=== PATIENT | male | born 1955 | race Caucasian/White ===

== ENCOUNTER 2016-02-20 15:04 | Outpatient (CLI) | payer BC ==
--- NOTE | 2016-02-21 07:14 | MRI ---
RIGHT KNEE MRI WITHOUT IV CONTRAST 02/20/16 HISTORY: 60-year-old male with right knee pain and osteoarthritis. Multiplanar and multisequence MRI examination of the right knee is performed. FINDINGS: There is evidence of suprapatellar joint recess fluid and diffusion. There is irregular cartilage lo ss of all three compartments including the central patellar facet with some subchondral cystic mills es and marked irregular cartilage loss of the medial compartment, somewhat greater than the lateral compartment. Extensive complex tear of the medial meniscus extending from the posterior horn into t he body of the meniscus with a large displaced meniscal flap extending deep to the MCL. The lateral meniscus appears unremarkable. Anterior and posterior cruciate ligaments and collateral ligament com plexes and quadriceps and patellar tendons appear within normal limits. There is significant irregul ar cartilage loss of the medial femoral condyle cartilage. Multiple intra-articular bodies are noted posterior to the posterior root of the medial meniscus up to 0.7 cm in size. No acute osteochondral defect. IMPRESSION: Somewhat complex tear of the medial meniscus extending from the posterior horn into the body with pr ominent superiorly displaced meniscal flap at the level of the body of the meniscus. Multiple intra- articular bodies in a posterior popliteal synovial cyst up to 0.7 cm. Severe tricompartment arthrosi s and marked irregular cartilage loss most marked involving the medial compartment. Evidence for sup rapatellar joint effusion. POS: OFF
== END 2016-02-20 15:05 | disposition home or self-care (01) ==
LOC: BURMRI 15:04
PROVIDERS: ATTEND Family Medicine
DX: M25.561 Pain in right knee (principal); M19.90 Unspecified osteoarthritis, unspecified site; M17.12 Unilateral primary osteoarthritis, left knee

== ENCOUNTER 2018-02-10 12:36 | Outpatient (CLI) | payer BC ==
--- NOTE | 2018-02-10 13:30 | RAD ---
CHEST TWO VIEWS: History: Z01.18 Pre op radiograph. Comparison: 2016 FINDINGS: Large volume hiatal hernia, similar. Mild left basilar atelectasis. No pneumothorax or effusion. No a cute osseous abnormality. IMPRESSION: No acute intrathoracic abnormality. POS: VERONICA
[2018-02-10 18:45] LABS: #Basophils 0.1 thou/uL (0.0-0.2); #Eosinphils 0.3 thou/uL (0.0-0.7); #Lymphocytes 2.2 thou/uL (1.20-3.40); #Monocytes 0.6 thou/uL (0.11-0.59); #Neutrophils 2.9 thou/uL (1.40-6.50); %Basophils 1.1 % (0.0-1.0); %Eosinophils 4.5 % (0.0-10.0); %Lymphocytes 36.7 % (21.0-51.0); %Monocytes 9.4 % (0.0-10.0); %Neutrophils 48.4 % (42.0-75.0); Hemoglobin 16.3 g/dL (14.0-18.0); Mean Corpuscular HGB CONC 32.6 g/dL (32.0-36.0); Mean Corpuscular Hemoglobin 28.6 pg (27.0-31.0); Mean Platelet Volume 7.9 fL (7.4-10.4); Platelet Count 248 thou/uL (130-400); RBC Distribution Width 13.5 % (11.5-14.5); Red Blood Cell (RBC) Count 5.71 mill/uL (4.70-6.10); White Blood Cell (WBC) Count 6.1 thou/uL (4.8-10.8)
[2018-02-10 21:03] LABS: Thyroid Stimulating Hormone 1.3124 uIU/mL (0.35-4.94)
[2018-02-10 21:41] LABS: ALT (SGPT) 24 U/L (8-55); AST (SGOT) 18 U/L (5-34); Albumin 4.4 g/dL (3.4-4.8); Alkaline Phosphatase 82 U/L (40-150); Anion Gap 15 mmol/L (10-20); BUN (Urea Nitrogen) 14 mg/dL (8.4-25.7); Bilirubin, Total 0.6 mg/dL (0.2-1.2); Calc. Creatinine Clearance 0 mL/min (70-130); Calcium 9.5 mg/dL (7.8-10.44); Carbon Dioxide 26 mmol/L (23-31); Chloride 102 mmol/L (98-107); Estimated GFR-MDRD 77; Globulin 3.1 g/dL (2.4-3.5); Glucose 86 mg/dL (80-115); Potassium 4.4 mmol/L (3.5-5.1); Protein, Total 7.5 g/dL (5.8-8.1); Sodium 139 mmol/L (136-145); Transferrin, Serum 352 mg/dL (163-344)
[2018-02-10 23:41] LABS: Hep C IgG Ab Non-Reactive (NonReactive); Hep C Index 0.14 S/CO (0-0.79)
== END 2018-02-10 12:37 | disposition home or self-care (01) ==
LOC: BUREKG 12:36
PROVIDERS: ATTEND Family Medicine
DX: Z01.818 Encounter for other preprocedural examination (principal)
CPT/HCPCS: 36415; 71046; 80053; 83036; 84443; 84466; 85025; 86803

== ENCOUNTER 2023-06-30 12:03 | Emergency (ER) | payer MEDICARE ==
[~2023-06-30 12:03] MED LIST: Iopamidol 370 76% 100 ML VIAL ONE
[2023-06-30 12:26] LABS: #Basophils 0.1 thou/uL (0.0-0.2); #Eosinphils 0.3 thou/uL (0.0-0.7); #Lymphocytes 3.2 thou/uL (1.20-3.40); #Monocytes 0.6 thou/uL (0.11-0.59); #Neutrophils 5.8 thou/uL (1.40-6.50); %Basophils 0.9 % (0.0-1.0); %Eosinophils 2.7 % (0.0-10.0); %Monocytes 6.3 % (0.0-10.0); Hematocrit 52.3 % (42.0-52.0); Mean Corpuscular HGB CONC 32.5 g/dL (32.0-36.0); Mean Corpuscular Hemoglobin 29.9 pg (27.0-31.0); Mean Corpuscular Volume 91.8 fl (78.0-98.0); Mean Platelet Volume 7.5 fL (7.4-10.4); Platelet Count 243 10x3/uL (130-400); RBC Distribution Width 12.9 % (11.5-14.5); Red Blood Cell (RBC) Count 5.69 mill/uL (4.70-6.10); White Blood Cell (WBC) Count 9.9 10x3/uL (4.8-10.8)
[2023-06-30 12:44] LABS: ALT (SGPT) 34 U/L (8-55); AST (SGOT) 24 U/L (5-34); Albumin 4.5 g/dL (3.4-4.8); Alkaline Phosphatase 74 U/L (40-110); Anion Gap 18 mmol/L (10-20); BUN (Urea Nitrogen) 27 mg/dL (8.4-25.7); Bilirubin, Total 0.8 mg/dL (0.2-1.2); Calc. Creatinine Clearance 0 mL/min (70-130); Calcium 9.6 mg/dL (7.8-10.44); Carbon Dioxide 25 mmol/L (23-31); Chloride 102 mmol/L (98-107); Estimated GFR 50; Globulin 3.1 g/dL (2.4-3.5); Glucose 153 mg/dL (80-115); Potassium 4.3 mmol/L (3.5-5.1); Protein, Total 7.6 g/dL (5.8-8.1); Sodium 141 mmol/L (136-145)
[2023-06-30 12:45] LABS: Troponin I 0.031 ng/mL (< 0.028)
[2023-06-30 12:56] LABS: PTT 22.7 sec (22.9-36.1)
[2023-06-30] MEDS ORDERED: Aspirin Chewable 81 MG TAB ONE (13:01)
[2023-07-01] MEDS ORDERED: Aspirin Chewable 81 MG TAB ONE (08:00)
[2023-07-01] MEDS ORDERED: Clopidogrel Bisulfate 75 MG TAB ONE (08:56)
[2023-07-01] MEDS ORDERED: Pantoprazole DR 40 MG TAB ONE (08:57)
[2023-07-01] MEDS ORDERED: Lisinopril 5 MG TAB PO SCH (09:15)
[2023-07-01] MEDS ORDERED: Metoprolol Tartrate 25 MG TAB PO SCH (09:15)
[2023-07-01 09:18] LABS: #Basophils 0.1 thou/uL (0.0-0.2); #Eosinphils 0.2 thou/uL (0.0-0.7); #Lymphocytes 2.9 thou/uL (1.20-3.40); #Monocytes 0.7 thou/uL (0.11-0.59); #Neutrophils 5.8 thou/uL (1.40-6.50); %Basophils 0.9 % (0.0-1.0); %Neutrophils 60.1 % (42.0-75.0); Hematocrit 52.5 % (42.0-52.0); Hemoglobin 16.9 g/dL (14.0-18.0); Mean Corpuscular HGB CONC 32.1 g/dL (32.0-36.0); Mean Corpuscular Hemoglobin 29.4 pg (27.0-31.0); Mean Corpuscular Volume 91.5 fl (78.0-98.0); Mean Platelet Volume 8.2 fL (7.4-10.4); Platelet Count 240 10x3/uL (130-400); RBC Distribution Width 13.1 % (11.5-14.5); Red Blood Cell (RBC) Count 5.74 mill/uL (4.70-6.10); White Blood Cell (WBC) Count 9.6 10x3/uL (4.8-10.8)
[2023-07-01 09:30] LABS: ALT (SGPT) 39 U/L (8-55); AST (SGOT) 26 U/L (5-34); Albumin 4.4 g/dL (3.4-4.8); Alkaline Phosphatase 73 U/L (40-110); Anion Gap 16 mmol/L (10-20); BUN (Urea Nitrogen) 18 mg/dL (8.4-25.7); Bilirubin, Total 0.9 mg/dL (0.2-1.2); Calc. Creatinine Clearance 0 mL/min (70-130); Calcium 9.2 mg/dL (7.8-10.44); Carbon Dioxide 22 mmol/L (23-31); Chloride 103 mmol/L (98-107); Estimated GFR 95; Globulin 3.1 g/dL (2.4-3.5); Glucose 156 mg/dL (80-115); Potassium 4.4 mmol/L (3.5-5.1); Protein, Total 7.5 g/dL (5.8-8.1); Sodium 137 mmol/L (136-145)
== END 2023-07-01 17:40 | disposition short-term general hospital (02) ==
LOC: BURERS 12:03
DX: I63.9 Cerebral infarction, unspecified (principal); R29.702 NIHSS score 2; I25.10 Atherosclerotic heart disease of native coronary artery without angina pectoris; K21.9 Gastro-esophageal reflux disease without esophagitis; Z79.899 Other long term (current) drug therapy
CPT/HCPCS: 36415; 36416; 70450; 70496; 70498; 80053; 84484; 85025; 85610; 85730; 93005; Q9967